=== PATIENT | male | born 1970 | race Caucasian/White ===

== ENCOUNTER 2017-03-26 23:21 | Emergency (ER) | payer BC, OTHER ==
[~2017-03-26] VITALS: Ht 182.9 cm; Wt 98.4 kg
[~2017-03-26 23:21] MED LIST: ATOR40TA68 PO; CYCL-319 PO; HYDR-3498 PO; LEVO75TA5 PO; PRED50TA PO
[2017-03-26 23:46] VITALS: Ht 182.9 cm; Wt 98.4 kg
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
[2017-03-27] MEDS ORDERED: IBUPROFEN 600 MG TAB PO ONE (00:30)
--- NOTE | 2017-03-27 01:51 | RADRPT ---
PROCEDURE: RIGHT SHOULDER CLINICAL INDICATION: 46-year-old male with right shoulder pain. TECHNIQUE: Three views of the right shoulder were obtained. The images reviewed on a PACS workstat ion. COMPARISON: None. FINDINGS: No evidence of fracture or dislocation is seen. The glenohumeral and acromioclavicular joint spaces appear preserved. Limited views of the clavicle and thorax are within normal limits. IMPRESSION: Unremarkable right shoulder radiographs. .Aydin Valdez MD, Date Time Electronically viewed and signed by .Aydin Valdez MD, on 03/27/2017 01:51 .M/
== END 2017-03-27 02:06 | disposition home or self-care (01) ==
LOC: FTE 23:21
DX: M54.12 Radiculopathy, cervical region (principal); I10 Essential (primary) hypertension; F17.210 Nicotine dependence, cigarettes, uncomplicated